=== PATIENT | female | born 1995 | race Two or more races ===

== ENCOUNTER 2018-02-22 18:21 | Emergency (ER) | payer OTHER ==
[2018-02-22 18:31] VITALS: BP 142/70
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
[2018-02-22] MEDS ORDERED: IBUPROFEN 600 MG TABLET PO STA (18:56)
[2018-02-22] MEDS ORDERED: LIDOCAINE JELLY 2% 5 ML TUBE TOP STA (18:56)
[2018-02-22] MEDS ORDERED: ACETAMINOPHEN 325 MG TABLET PO STA (18:56)
[2018-02-22] MEDS ORDERED: traMADol 50 MG TABLET PO STA (19:01)
== END 2018-02-22 19:14 | disposition home or self-care (01) ==
LOC: ED 18:21
DX: T23.262A Burn of second degree of back of left hand, initial encounter (principal); X10.0XXA Contact with hot drinks, initial encounter; Y92.009 Unspecified place in unspecified non-institutional (private) residence as the place of occurrence of the external cause; F17.200 Nicotine dependence, unspecified, uncomplicated
CPT/HCPCS: 99283; A9270; J3490

== ENCOUNTER 2019-02-02 10:02 | Emergency (ER) | payer OTHER ==
[2019-02-02] MEDS ORDERED: SUMAtriptan 6 MG/0.5 ML VIAL SUBQ STA (12:40)
--- NOTE | 2019-02-02 12:41 | ED Physician Documentation ---
PD HPI FOCAL NEURO - Stated complaint Stated Complaint: VISION CHANGES - Chief complaint Chief Complaint: Neuro - History obtained from History obtained from: Patient - History of Present Illness Timing - onset: Other (Previously healthy 23-year-old woman who has no possibility of for her. She has relatively frequent headaches but no formal diagnosis of migraines. She woke up with a headache today, biparietal, not the worst of her life. It was gradual in onset. Not severe. What worried her more subsequent to that she had some substernal chest pressure and spots in her vision. Then she became photophobic. Then she closed her eyes for a while and when she opened her eyes everything was briefly blue. Now her visual symptoms are gone but the headache persists. She has been mildly nauseous.) Review of Systems Constitutional: denies: Fever, Chills Eyes: reports: Photophobia. denies: Loss of vision, Decreased vision Ears: denies: Loss of hearing, Ear pain Nose: denies: Rhinorrhea / runny nose, Congestion PD PAST MEDICAL HISTORY - Past Surgical History Past Surgical History: No - Present Medications Home Medications: Ambulatory Orders Medication Instructions Recorded Confirmed SUMAtriptan [Imitrex] 25 mg PO BID PRN #10 tablet 02/02/19 - Allergies Allergies/Adverse Reactions: Allergies Allergy/AdvReac Type Severity Reaction Status Date / Time No Known Drug Allergies Allergy Verified 02/02/19 10:07 - Social History Does the pt smoke?: Yes Smoking Status: Current every day smoker Does the pt drink ETOH?: Yes Does the pt have substance abuse?: No - Immunizations Immunizations are current?: Yes PD ED PE NORMAL - Vitals Vital signs reviewed: Yes - General General: Alert and oriented X 3, No acute distress - HEENT HEENT: PERRL, EOMI - Neck Neck: Supple, no meningeal sign, No bony TTP - Cardiac Cardiac: RRR, No murmur - Respiratory Respiratory: No respiratory distress, Clear bilaterally - Abdomen Abdomen: Non tender - Neuro Neuro: Alert and oriented X 3, mold stamper 2-12 intact, No motor deficit, No sensory deficit, Normal speech Eye Opening: Spontaneous Motor: Obeys Commands Verbal: Oriented GCS Score: 15 - Psych Psych: Normal mood, Normal affect Results - Vitals Vitals: Vital Signs - 24 hr 02/02/19 02/02/19 02/02/19 10:07 12:46 14:13 Temperature 36.7 C Heart Rate 85 76 70 Respiratory 15 18 18 Rate Blood Pressure 118/78 122/78 O2 Saturation 100 98 100 Oxygen O2 Source Room air - EKG (time done) 1308 Rate: Rate (enter#) (68) Rhythm: NSR [place]: Normal Intervals: Normal ME QRS: Normal Ischemia: Normal ST segments Computer interpretation: Agree with computer - Rads (name of study) CT Head Radiology: EMP read contemporaneously (Focally prominent posterior fossa CSF, but no acute disease.) PD MEDICAL DECISION MAKING - ED course ED course: 23-year-old woman with fairly typical ophthalmic migraine type symptoms. She did not have relief with Imitrex, but she did have relief with Benadryl and Reglan here. CT of the head was done since she is never had cranial imaging it was normal Departure - Departure Disposition: 01 Home, Self Care Clinical Impression: Migraine Qualifiers: Migraine type: with aura Status migrainosus presence: with status migrainosus Intractability: not intractable Qualified Code(s): G43.101 - Migraine with aura, not intractable, with status migrainosus Condition: Good Record reviewed to determine appropriate education?: Yes Instructions: ED Headache Migraine, Imitrex Prescriptions: SUMAtriptan [Imitrex] 25 mg PO BID PRN #10 tablet PRN Reason: Headache Comments: Call your doctor to arrange a follow-up appointment, make the next available appointment. In the interim, return anytime if worse or if new symptoms develop.
[2019-02-02] MEDS ORDERED: KETOROLAC 15 MG/ML VIAL IVP STA (13:16)
[2019-02-02] MEDS ORDERED: METOCLOPRAMIDE 10 MG/2 ML VIAL IVP STA (13:16)
--- NOTE | 2019-02-02 13:16 | CT Report ---
Reason: headache Procedure Date: 02/02/2019 Accession Number: [id number] / [id number] Procedure: CT - HEAD WO CPT Code: FULL RESULT: EXAM: CT HEAD EXAM DATE: 02/02/2019 01:00 PM. CLINICAL HISTORY: Headache. COMPARISON: None. TECHNIQUE: Multiaxial CT images were obtained from the foramen magnum to the vertex. Reformats: Sagittal and coronal. IV contrast: None. In accordance with CT protocol optimization, one or more of the following dose reduction techniques were utilized for this exam: automated exposure control, adjustment of mA and/or KV based on patient size, or use of iterative reconstructive technique. FINDINGS: Parenchyma: No intraparenchymal hemorrhage. No evidence of mass or midline shift. Rice-white differentiation is distinct. Extraaxial Spaces: Focally prominent simple CSF space in the posterior bilateral paramidline visualized, 1.2 x 1.2 cm on the right and 1 x 1.8 cm on the left, on the axial plane, suggesting focally prominent CSF versus arachnoid cysts, normal variation. No subdural or epidural collections identified. Ventricles: Normal in size and position. Sinuses and Orbits: Imaged paranasal sinuses, orbits, and mastoids show no significant abnormality. Bones: No evidence of fracture or calvarial defect. Other: None. IMPRESSION: Negative head CT. RADIA
[2019-02-02 14:14] VITALS: BP 122/78
== END 2019-02-02 14:29 | disposition home or self-care (01) ==
LOC: ED 10:02
DX: G43.101 Migraine with aura, not intractable, with status migrainosus (principal); R07.89 Other chest pain; F17.200 Nicotine dependence, unspecified, uncomplicated
CPT/HCPCS: 70450; 93005; 96372; 96374; 99284; J2765

== ENCOUNTER 2021-02-18 15:31 | Emergency (ER) | payer OTHER ==
[2021-02-18 15:44] VITALS: BP 128/74
--- NOTE | 2021-02-18 15:51 | ED Physician Documentation ---
PD HPI URI - Stated complaint Stated Complaint: SORE THROAT - Chief complaint Chief Complaint: Heent - History obtained from History obtained from: Patient (26-year-old woman has had a sore throat for a week and a half but in the last 2 days has had swollen tonsils, fever, and difficulty swallowing. No runny nose or cough.) Review of Systems Constitutional: reports: Fever, Chills. denies: Myalgias Nose: denies: Rhinorrhea / runny nose Throat: reports: Sore throat Respiratory: denies: Dyspnea, Cough PD PAST MEDICAL HISTORY - Past Surgical History Past Surgical History: No - Present Medications Home Medications: Ambulatory Orders Medication Instructions Recorded Confirmed SUMAtriptan [Imitrex] 25 mg PO BID PRN #10 tablet 02/02/19 Penicillin V Potassium 500 mg PO Q6HR #40 tablet 02/18/21 - Allergies Allergies/Adverse Reactions: Allergies Allergy/AdvReac Type Severity Reaction Status Date / Time No Known Drug Allergies Allergy Verified 02/18/21 15:43 - Social History Does the pt smoke?: Yes Smoking Status: Current every day smoker Does the pt drink ETOH?: Yes Does the pt have substance abuse?: No - Immunizations Immunizations are current?: Yes PD ED PE NORMAL - Vitals Vital signs reviewed: Yes - General General: Alert and oriented X 3, No acute distress - HEENT HEENT: Other (Swollen tonsils with small exudates, not kissing, shotty anterior cervical adenopathy) - Neck Neck: Supple, no meningeal sign, No bony TTP - Derm Derm: Normal color, Warm and dry, No rash - Neuro Neuro: Alert and oriented X 3, Normal speech Results - Vitals Vitals: Vital Signs - 24 hr 02/18/21 15:38 Temperature 37.5 C Heart Rate 103 H Respiratory 15 Rate Blood Pressure 128/74 O2 Saturation 100 Oxygen O2 Source Room air - Labs Labs: Laboratory Tests 02/18/21 15:48 Group A Strep Rapid POSITIVE H Departure - Departure Disposition: 01 Home, Self Care Clinical Impression: Strep pharyngitis Condition: Good Record reviewed to determine appropriate education?: Yes Instructions: ED Strep Pharyngitis Conf Prescriptions: Penicillin V Potassium 500 mg PO Q6HR #40 tablet Comments: Prescription sent electronically to [facility] in [place] Return in 2 to 3 days if not improving, anytime if worse. Ibuprofen as needed for pain and swelling.
[2021-02-18] MEDS: CHERRY SYRUP 10 ML UDC PO ONE (15:54)
[2021-02-18] MEDS: DEXAMETHASONE 10 MG/ML VIAL PO STA (15:54)
[2021-02-18 16:01] LABS: RAPID STREP SCREEN POSITIVE (Negative)
== END 2021-02-18 16:10 | disposition home or self-care (01) ==
LOC: ED 15:31
DX: J02.0 Streptococcal pharyngitis (principal); F17.200 Nicotine dependence, unspecified, uncomplicated
CPT/HCPCS: 87430; 99283; A9270